=== PATIENT | male | born 1965 | race Caucasian/White ===

== ENCOUNTER 2020-02-25 10:41 | Emergency (ER) | payer OTHER ==
[2020-02-25 10:47] VITALS: BMI 33.9
[2020-02-25 12:32] LABS: CHLORIDE 107 mmol/L (98-107); POTASSIUM 4.1 mmol/L (3.5-5.1); SODIUM 142 mmol/L (136-145)
[2020-02-25 12:33] LABS: BASO % 1.2 % (0-2.0); EOS % 0.9 % (0-4.5); HEMATOCRIT 40.9 % (35.4-49); HEMOGLOBIN 13.5 GM/dL (11.7-16.9); LYMPH % 29.8 % (8-40); MCH 28.3 pg (25.7-33.7); MEAN PLT VOLUME 11.3 fl (7.5-11.1); MONO % 8.9 % (3.8-10.2); NEUT % 59.2 % (42.8-82.8); PLATELET COUNT 124 K/MM3 (134-434); RBC 4.76 M/mm3 (4.00-5.60); RDW 14.9 % (11.9-15.9); WHITE BLOOD COUNT 4.7 K/mm3 (4.0-10.0)
[2020-02-25 12:34] LABS: CALCIUM 8.8 mg/dL (8.5-10.1)
[2020-02-25 12:36] LABS: ALBUMIN 4.3 g/dl (3.4-5.0); ANION GAP 6 MMOL/L (8-16); BLOOD UREA NITROGEN 23.8 mg/dL (7-18); CO2 30 mmol/L (21-32); GLUCOSE,RANDOM 72 mg/dL (74-106); MAGNESIUM 2.1 mg/dL (1.8-2.4)
[2020-02-25 12:38] LABS: SGPT/ALT 24 U/L (13-61)
[2020-02-25 12:39] LABS: BILIRUBIN,TOTAL 0.5 mg/dL (0.2-1); CHOLESTEROL 181 mg/dL (50-200); CREATININE 1.6 mg/dL (0.55-1.3); INR 0.94 (0.83-1.09); LDL CHOLESTEROL (ONLY SJRH) 114 mg/dL (5-100); PROTHROMBIN TIME (PATIENT) 11.6 SEC (9.7-13.0); SGOT/AST 19 U/L (15-37); TOT PROT 7.6 g/dl (6.4-8.2); TRIGLYCERIDES 171 mg/dL (0-150)
[2020-02-25 12:40] LABS: ALK PHOS 61 U/L (45-117); HDL CHOLESTEROL 35 mg/dL (40-60)
[2020-02-25 12:41] LABS: ACTIVATED PTT 30.3 SECONDS (25.2-36.5)
[2020-02-25] MEDS ORDERED: MECLIZINE HCL 12.5 MG TABLET PO PRN (13:43)
[2020-02-25] MEDS ORDERED: MECLIZINE HCL 12.5 MG TABLET ONE (13:51)
[2020-02-25] MEDS ORDERED: diazePAM 2 MG TABLET PO ONE (14:39)
[2020-02-25] MEDS ORDERED: diazePAM 5 MG TABLET ONE (14:44)
[2020-02-25 16:02] VITALS: BP 123/86; PULSE 86; TEMP 98.4
== END 2020-02-25 17:21 | disposition home or self-care (01) ==
LOC: JER 10:41
DX: R42 Dizziness and giddiness (principal)
CPT/HCPCS: 36415; 70450-TC; 70551-TC; 71045-TC-FY; 80053; 80061; 82550; 82553; 83721; 83735; 84484; 85025; 85610; 85730; 93005; 93010; 99285-25; C9803; U0003

== ENCOUNTER 2021-06-16 04:30 | Day surgery (SDC) | payer OTHER ==
[2021-06-11 15:42] VITALS: BMI 34.2
[2021-06-16] MEDS ORDERED: MIDAZOLAM HCL 2 MG/2 ML SINGLE DOSE VIAL ONE (12:42)
[2021-06-16] MEDS ORDERED: ONDANSETRON 4 MG/2 ML VIAL ONE (12:54)
[2021-06-16 15:35] VITALS: BP 124/85; PULSE 73; TEMP 98.3
== END 2021-06-16 15:10 | disposition home or self-care (01) ==
LOC: JASU-SURG 04:30
PROVIDERS: ATTEND Urology
PROC: 0TF3XZZ Fragmentation in Right Kidney Pelvis, External Approach (ICD-10-PCS; principal; 2021-06-16 12:00)
DX: N20.0 Calculus of kidney (principal)